=== PATIENT | male | born 1955 | race Caucasian/White ===

== ENCOUNTER → 2022-11-03 09:41 | Outpatient (REF) | payer OTHER, SELFPAY ==
--- NOTE | 2022-11-03 09:50 | CA_ITS ---
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 Normal LV systolic function with impaired relaxation filling pattern 2. Mildly dilated left atrium 3. Mild fibrocalcific aortic valve changes noted with slightly increased gradient 4. Upper limits of normal RV systolic pressure 5. Mildly dilated ascending aorta at 4 cm 6. No pericardial effusion Findings Left Ventricle Normal left ventricular size and systolic function. There is mildly increased left ventricular wall thickness. The visually estimated ejection fraction is between 65-70%. Spectral Doppler is indicative of an impaired relaxation filling pattern. E/E prime ratio is between 8 and 15 consistent with indeterminate filling pressures. Peak GLS is -17.9%, borderline normal. Right Ventricle Normal right ventricular cavity size and systolic function. Atria The left atrium is mildly dilated. There is no evidence of interatrial shunt. The right atrium is likely dilated. Aortic Valve There is mild calcification of the aortic valve. There is mild thickening of the aortic valve. There is no aortic valve stenosis. There is no aortic valve regurgitation. Mitral Valve There is mild anterior and posterior mitral leaflet thickening. There is trace mitral valve regurgitation. There is no mitral valve stenosis. Pulmonic Valve The pulmonic valve is likely normal. There is trace pulmonic valve regurgitation. Tricuspid Valve Normal tricuspid valve structure. There is trace tricuspid valve regurgitation. The right ventricular systolic pressure is 37 mmHg. Normal right atrial pressure. There is no evidence of pulmonary hypertension. Great Vessels The pulmonary artery was not well visualized. There is mild dilatation of the ascending aorta measuring 4.00 cm. Venous The inferior vena cava is normal in size and collapses greater than 50% with inspiration. Pericardium/Pleural There is no evidence of pericardial effusion. Prior Study Comparison No prior study available for comparison. Measurements 2D Linear Measurements IVSd: 1.47 0.6-0.9/0.6-1.0 cm LVIDd: 4.17 3.9-5.3/4.2-5.9 cm LVIDd Index: 1.83 2.4-3.2/2.2-3.1 cm/m2 LVIDs: 2.75 2.0-3.6 cm LVPWd: 1.21 0.7-1.1 cm LA Diam: 3.60 2.7-3.8/3.0-4.0 cm LAIDs Index: 1.58 1.5-2.3 cm/m2 LV Mass: 258.86 67-162/88-224 g LV Mass Index: 113.54 43-95/49-115 g/m2 LVOT Diam: 2.50 3.0+(-)1.3 cm 2D Systolic Function EF 4C: 68.80 >55% EF 2C: 64.60 >55% EF BiP: 66.10 >55% Mitral Valve MV Pk E: 0.86 MV PK A: 0.82 MV Decel Time: 214.00 E/A: 1.00 E'Lateral: 11.20 E'Medial: 7.18 E/E' Med: 12.00 E/E' Lat: 7.70 PHT: 63.00 MVA PHT: 3.49 Decel Mills: 4.01 Aortic Valve AoV Pk Marshall: 2.17 AoV Mn Marshall: 1.40 AoV VTI: 0.40 AoV Pk Grad: 19.00 Aov Mn Grad: 9.00 ALLAN Cont.VTI: 3.51 LVOT LVOT Pk Marshall: 1.58 LVOT Mn Marshall: 1.07 LVOT VTI: 0.28 LVOT Pk Grad: 10.00 LVOT Mn Grad: 5.00 LVOT Diam: 2.50 LVOT Area: 4.91 Diastolic Function MV Pk E: 0.86 MV Pk A: 0.82 E/A: 1.00 E'Medial: 7.18 E/E' Med: 12.00 E' Laterial: 11.20 E/E' Lat: 7.70 Right Ventricle TAPSE (mm): 26.20 TVS' Marshall: 17.40 Tricuspid Valve TR Pk Marshall: 2.90 TR Pk Grad: 34.00 RA Press: 3.00 RVSP: 37.00 Great Vessels Aorta Sinus of Valsalva: 3.50 2.0-3.[address] [place]: 3.16 1.7-3.4 cm Ao Asc: 4.00 2.1-3.4 cm Updated in Other Vendor System with Status of Final Herson Eugene MD electronically signed on 11/03/2022 4:44:33 PM with status of Final
== END ==
LOC: HO.CARD 09:41
PROVIDERS: PCP Family Medicine; Visit Provider Family Medicine
DX: R01.1 Cardiac murmur, unspecified (principal)
CPT/HCPCS: 93306; 93356